=== PATIENT | male | born 1990 | race Caucasian/White ===

== ENCOUNTER 2020-07-05 15:41 | Emergency (ER) | payer MEDICAID, MEDICARE ==
[~2020-07-05] VITALS: Ht 182.9 cm; Wt 83.1 kg
[2020-07-05 15:52] VITALS: BP 132/93
[2020-07-05] MEDS ORDERED: IBUPROFEN 800 MG TABLET PO ONE (18:00)
== END 2020-07-05 17:56 | disposition home or self-care (01) ==
LOC: ED 17:00
DX: K02.9 Dental caries, unspecified (principal); F17.210 Nicotine dependence, cigarettes, uncomplicated; Z72.9 Problem related to lifestyle, unspecified
CPT/HCPCS: 99283; 99406